=== PATIENT | female | born 1985 | race Caucasian/White ===

== ENCOUNTER 2021-03-23 00:39 | Emergency (ER) | payer OTHER ==
[~2021-03-23] VITALS: Ht 160 cm; Wt 63.5 kg
[~2021-03-23 00:39] MED LIST: ACET-2991; CEPH500C16; SULF1TAB12
--- NOTE | 2021-03-23 00:39 | NUR ---
MADDIE LEIGH, PREBOOK. TAKEN TO CHAIR
[2021-03-23 00:45] VITALS: BP 144/88
--- NOTE | 2021-03-23 00:52 | NUR ---
NO NURSING INTERVENTION NEEDED
[2021-03-23 00:56] VITALS: BP 144/88
--- NOTE | 2021-03-23 00:57 | NUR ---
PATIENT BIB [place] [employer]. PATIENT EXAMINED BY DR. SAVAGE. PATIENT MEDICALLY CLEARED AND RELEASED IN CUSTODY IN STABLE CONDITION. ORIGINAL PRE-BOOK FORM GIVEN TO OFFICER DK.
== END 2021-03-23 00:57 ==
LOC: MED 00:39
DX: Z02.89 Encounter for other administrative examinations (principal); Z79.899 Other long term (current) drug therapy
CPT/HCPCS: 99283